=== PATIENT | male | born 1980 | race Caucasian/White ===

== ENCOUNTER 2017-09-03 10:17 | Observation (INO) ==
[2017-09-03 13:10] LABS: Calcium 8.9 MG/DL (8.5-10.1); Osmolality,Calculated 277.4 MOS/KG (273-304); Potassium 3.9 MMOL/L (3.5-5.1)
[2017-09-03] MEDS ORDERED: ZALEPLON 5 MG CAPSULE PO PRN (15:14)
[2017-09-03] MEDS ORDERED: MAGNESIUM SULF RIDER 4 GM in PREMIX 1 EACH IV PRN (15:14)
[2017-09-03] MEDS ORDERED: DOCUSATE SODIUM 100 MG CAPSULE PO PRN (15:14)
[2017-09-03] MEDS ORDERED: ACETAMINOPHEN 325 MG TABLET PO PRN (15:14)
[2017-09-03] MEDS ORDERED: ONDANSETRON 4 MG/2 ML VIAL IV PRN (15:14)
[2017-09-03] MEDS ORDERED: MAGNESIUM SULF RIDER 2 GM in PREMIX 1 EACH IV PRN (15:14)
[2017-09-03 15:37] LABS: Basophils % 0.3 % (0.0-0.8); Eosinophils # 0.3 10*3/uL (0.0-0.87); Eosinophils % 2.6 % (0.00-10.9); Immature Granulocytes % 0.3 %; Immature Granulocytes Absolute 0.03 #; Lymphocytes # 3.7 10*3/uL (1.4-4.0); Mean Corpuscular HGB Conc 34.1 GM/DL (32-36); Mean Corpuscular Hemoglobin 32 PG (27-34); Mean Corpuscular Volume 92.8 FL (87-102); Mean Platelet Volume 9.2 FL (9.6-12.0); Monocytes # 0.7 10*3/uL (0.11-0.8); Monocytes % 5.9 % (1.7-12.7); Neutrophils # 6.8 10*3/uL (1.4-7.4); Neutrophils % 58.9 % (38.7-73.9); Platelet Count 300 T/CUMM (130-400); Red Blood Count 4.74 MC/CUMM (3.8-5.5); Red Cell Distribution Width 12.2 % (9.3-17.3); White Blood Count 11.5 T/CUMM (4-12)
[2017-09-03 16:40] LABS: Sedimentation Rate-Westergren 21 MM/HR (0-15)
[2017-09-03] MEDS ORDERED: METOPROLOL TARTRATE 50 MG TABLET ONE (16:59)
[2017-09-03] MEDS ORDERED: ASPIRIN CHEW 81 MG TABLET PO ONE (16:59)
[2017-09-03] MEDS: METOPROLOL TARTRATE 50 MG TABLET PO SCH ×2 (17:00→21:21)
[2017-09-03] MEDS: ASPIRIN EC 81 MG TABLET PO SCH (17:00)
[2017-09-03] MEDS: ALBUTEROL/IPRATROPIUM 3 ML NEB RESP TX SCH ×2 (17:02→19:43)
[2017-09-03 17:59] LABS: Apearance,Urine Slightly Hazy (Clear); Bacteria,Urine Occasional /HPF (Few); Bilirubin,Urine Negative (Negative); Blood, Urine Negative (Negative); Glucose,Urine (UA) Negative (Negative); Ketones,Urine 5 mg/dL (Negative); Nitrite,Urine Negative (Negative); Protein,Urine Negative; RBC,Urine 1 /HPF (0-4); Urine Color Yellow (Yellow); Urine Specific Gravity 1.011 (1.001-1.035); Urine Urobilinogen < 2.0 EU/DL (0.2-1.0); WBC,Urine 1 /HPF (0-6)
[2017-09-03 18:42] LABS: Barbiturates Screen,Urine Negative (Negative); Benzodiazepines Screen,Urine Negative (Negative); Cannabinoid Screen,Urine Positive (Negative); Opiate Screen,Urine Negative (Negative); Phencyclidine Screen,Urine Negative (Negative)
[2017-09-04 05:53] LABS: Calcium 8.4 MG/DL (8.5-10.1); Magnesium 2.2 MG/DL (1.8-2.4); Osmolality,Calculated 273.7 MOS/KG (273-304); Potassium 4.1 MMOL/L (3.5-5.1); Risk Ratio 4.29; Thyroid Stimulating Hormone 1.75 uIU/ml (0.358-3.74)
[2017-09-04] MEDS: ALBUTEROL/IPRATROPIUM 3 ML NEB RESP TX SCH (07:34)
[2017-09-04 08:02] VITALS: BP 115/67
[2017-09-04] MEDS: ASPIRIN EC 81 MG TABLET PO SCH (08:27)
[2017-09-04] MEDS: METOPROLOL TARTRATE 50 MG TABLET PO SCH (08:27)
== END 2017-09-04 11:45 | disposition home or self-care (01) ==
LOC: N.ED 10:17 → N.EDINP 10:17 → N.TELEN 17:21
PROVIDERS: ADMIT Internal Medicine Clinical Cardiac Electrophysiology; ATTEND Internal Medicine Clinical Cardiac Electrophysiology